=== PATIENT | female | born 1970 | race Caucasian/White ===

== ENCOUNTER 2016-11-16 08:50 | Emergency (ER) | payer OTHER ==
--- NOTE | ~2016-11-16 | CR72 ---
[facility] A Service of [facility] & [facility] RADIOLOGY TEXT RESULTS PATIENT: TANVIR BRIONES LOCATION: [facility] : 71 UNIT #: [id number] AGE: [address]: Michael Tapia MD SEX: F ORDER DR: [id number] [facility] [address] [place], [place] [address] [id number] E MR#: [id number] Acc #: [id number] NAME: TANVIR BRIONES. : 1970 SEX: F STUDY DATE/TIME: 11/16/2016 10:03 UNIT: [facility] ROOM: STUDY DESCRIPTION: CR Chest Single View Portable Attending Physician: Michael Tapia M.D. Ordering Physician: Michael Tapia M.D. Primary Care Physician: Alfredo Girard M.D. MEDICAL IMAGING REPORT This report is preliminary unless electronic signature is present EXAM Portable AP view of the chest COMPARISON October 20, 2014 INDICATION 46-year-old female with dyspnea and cough for 1 week. History of asthma. FINDINGS Hazy attenuation over the left lateral lung base is favored to be due to prominent breast shadow. No evidence of pneumothorax. Right lung is clear. Cardiomediastinal silhouette is normal. IMPRESSION Hazy attenuation over the left lower chest favored to represent prominent soft tissue shadow. Left basilar atelectasis, pneumonia and/or pleural effusion cannot entirely be excluded but are thought less likely. If clinically indicated, a lateral view could be performed to confirm. Otherwise normal chest. Dictated by... Laurent Patel M.D. THIS IS AN ELECTRONICALLY VERIFIED REPORT Laurent Patel M.D. at 11/23/2016 2:19 PM Seamus TD: 11/16/2016 12:59 JOB #: [id number] MEDICAL IMAGING REPORT Page 1 of 1 COPY
--- NOTE | ~2016-11-16 | EKG ---
PATIENT: TANVIR BRIONES UNIT #: [id number] Ventricular Rate: 106 BPM Atrial Rate: 106 BPM P-R Interval: 136 ms QRS Duration: 102 ms Q-T Interval: 376 ms QTC Calculation(Bezet): 499 ms Calculated R [place]: -15 degrees Calculated T [place]: 123 degrees Diagnosis Line: Sinus tachycardia Diagnosis Line: Nonspecific T wave abnormality Diagnosis Line: Abnormal ECG Diagnosis Line: When compared with ECG of 20-OCT-2014 22:14, Diagnosis Line: Nonspecific T wave abnormality now evident in Diagnosis Line: Inferior leads Diagnosis Line: Nonspecific T wave abnormality now evident in Diagnosis Line: Lateral leads Diagnosis Line: Confirmed by XIN RODARTE MD ([id number]) on Diagnosis Line: 11/18/2016 9:37:33 PM INTERPRETING MD: CAYDEN HUTSON
[2016-11-16 09:55] LABS: POC - CKMB 1.4 ng/mL (0.0-7.9); POC - TROPONIN <0.05 ng/mL (<=0.05)
[2016-11-16 10:09] LABS: BASOPHIL# 0.1 X10e3 (0-0.3); BASOPHIL% 1.2 % (0-2.5); DIFF IND NO; EOSINOPHIL# 0.1 X10e3 (0-0.7); EOSINOPHIL% 1.3 % (0.0-7.0); HEMOGLOBIN 16.2 gm/dL (12.0-16.0); LYMPHOCYTE# 1.1 X10e3 (1.0-3.5); MEAN CELL VOLUME 96.9 FL (83-96); MONOCYTE# 0.4 X10e3 (0-1.0); MONOCYTE% 7.1 % (3.0-12.0); NEUTROPHIL# 4.6 X10e3 (1.5-7.1); NEUTROPHIL% 72.4 % (40-75); PLATELET COUNT 151 X10e3 (140-420); RED BLOOD COUNT 5.06 X10e (3.90-5.30); RED CELL DISTRIBUTION WIDTH 14.2 % (11.0-15.5); WHITE BLOOD COUNT 6.3 X10e3 (4.0-10.5)
[2016-11-16 10:35] LABS: CALCIUM SERUM 8.9 mg/dL (8.4-10.2); CREATININE SERUM 0.7 mg/dL (0.6-1.4); GLOM FILT RATE Estimated 104.6 mL/min (>60)
[2016-11-16 10:37] LABS: POTASSIUM 2.9 mmol/L (3.5-5.1)
== END 2016-11-16 10:59 | disposition home or self-care (01) ==
LOC: CED 08:50
PROVIDERS: Emergency Medicine
DX: J45.901 Unspecified asthma with (acute) exacerbation (principal); E87.6 Hypokalemia; F17.200 Nicotine dependence, unspecified, uncomplicated; Z88.0 Allergy status to penicillin; Z88.2 Allergy status to sulfonamides; Z98.890 Other specified postprocedural states
CPT/HCPCS: 36415; 71010; 80048; 82553; 84484; 85025; 93005; 94640; 99284

== ENCOUNTER 2016-12-20 10:09 | Emergency (ER) | payer OTHER ==
--- NOTE | ~2016-12-20 | CT16 ---
[facility] A Service [facility] RADIOLOGY TEXT RESULTS PATIENT: TANVIR BRIONES LOCATION: [facility] : 71 UNIT #: [id number] AGE: [address]: Galilea Salgado MD SEX: F ORDER DR: [id number] [facility] [address] [place], [place] [address] [id number] E MR#: [id number] Acc #: [id number] NAME: TANVIR BRIONES. : 1970 SEX: F STUDY DATE/TIME: 12/20/2016 17:12 UNIT: [facility] ROOM: STUDY DESCRIPTION: CT Angio Chest for PE Attending Physician: Galilea Salgado M.D. Ordering Physician: Galilea Salgado M.D. Primary Care Physician: Luz Mcmahan A.P.R.N. MEDICAL IMAGING REPORT This report is preliminary unless electronic signature is present EXAM Chest CTA, 12/20. INDICATION Difficulty breathing with shortness of air and cough that started this morning. Vomiting. TECHNIQUE Axial images were obtained through the chest following IV contrast administration. 3-D reformats were obtained. This CT exam was performed with one or more of the following radiation dose reduction techniques: automatic exposure control, adjustment of mA and/or kV according to patient size, and iterative reconstruction. COMPARISON No comparison. FINDINGS No pleural or pericardial effusion. No pulmonary embolism or aortic dissection. No adenopathy. Breast implants are present. The right appears much smaller and is probably ruptured. The lungs are clear. Upper abdomen is unremarkable. There is degenerative disease in the thoracic spine. IMPRESSION 1. No pulmonary embolism or aortic dissection. 2. No active disease in the chest. 3. Probable ruptured right breast implant. Dictated by... [facility] A Service of [facility] RADIOLOGY TEXT RESULTS PATIENT: TANVIR BRIONES LOCATION: [facility] : 71 UNIT #: [id number] AGE: [address]: Galilea Salgado MD SEX: F ORDER DR: Don Keith Jr., M.D. THIS IS AN ELECTRONICALLY VERIFIED REPORT Don Keith Jr., M.D. at 12/23/2016 5:55 AM AVTAR/jason TD: 12/21/2016 02:33 JOB #: [id number] MEDICAL IMAGING REPORT Page 1 of 1 COPY
--- NOTE | ~2016-12-20 | EKG ---
PATIENT: TANVIR BRIONES UNIT #: [id number] Ventricular Rate: 103 BPM Atrial Rate: 103 BPM P-R Interval: 136 ms QRS Duration: 102 ms Q-T Interval: 402 ms QTC Calculation(Bezet): 526 ms P [place]: 28 degrees Calculated R [place]: 15 degrees Calculated T [place]: 26 degrees Diagnosis Line: Sinus tachycardia Diagnosis Line: Possible Left atrial enlargement Diagnosis Line: Prolonged QT Diagnosis Line: Abnormal ECG Diagnosis Line: When compared with ECG of 16-NOV-2016 10:05, Diagnosis Line: Nonspecific T wave abnormality, improved in Diagnosis Line: Inferior leads Diagnosis Line: Nonspecific T wave abnormality no longer evident Diagnosis Line: in Lateral leads Diagnosis Line: Confirmed by ADILIA JEFFERSON MD ([id number]) on 12/25/2016 Diagnosis Line: 2:39:32 PM INTERPRETING MD: LI HUTSON
--- NOTE | ~2016-12-20 | CR72 ---
[facility] A Service of [facility] & [facility] RADIOLOGY TEXT RESULTS PATIENT: TANVIR BRIONES LOCATION: [facility] : 71 UNIT #: [id number] AGE: [address]: Galilea Salgado MD SEX: F ORDER DR: [id number] [facility] [address] [place], [place] [address] [id number] E MR#: [id number] Acc #: [id number] NAME: TANVIR BRIONES. : 1970 SEX: F STUDY DATE/TIME: 12/20/2016 13:02 UNIT: [facility] ROOM: STUDY DESCRIPTION: CR Chest Single View Portable Attending Physician: Galilea Salgado M.D. Ordering Physician: Galilea Salgado M.D. Primary Care Physician: Luz Mcmahan MEDICAL IMAGING REPORT This report is preliminary unless electronic signature is present EXAM Portable chest, 12/20/2016. [facility] HISTORY 46-year-old woman, short of air, chest tightness, dizziness, nausea, vomiting. Symptoms since 9:00 a.m. 30-year smoking history. Comparison chest 11/16/2016. FINDINGS AP upright portable chest demonstrates normal heart size. Hilar structures and mediastinal contours are preserved. Bilateral lungs are expanded and clear. Costophrenic angles are clear. IMPRESSION Negative stable chest. Dictated by... Rich King M.D. THIS IS AN ELECTRONICALLY VERIFIED REPORT Rich King M.D. at 12/21/2016 3:01 PM FLORINDA/naomie TD: 12/20/2016 19:43 JOB #: [id number] MEDICAL IMAGING REPORT Page 1 of 1 COPY
[2016-12-20 13:03] LABS: BASOPHIL# 0.1 X10e3 (0-0.3); BASOPHIL% 1.3 % (0-2.5); EOSINOPHIL# 0.1 X10e3 (0-0.7); EOSINOPHIL% 1.8 % (0.0-7.0); HEMATOCRIT 53.1 % (35.0-45.0); HEMOGLOBIN 17.7 gm/dL (12.0-16.0); LYMPHOCYTE# 1.9 X10e3 (1.0-3.5); LYMPHOCYTE% 35.8 % (17.0-45.0); MEAN CELL VOLUME 95.4 FL (83-96); MEAN CORPUSCULAR HEMOGLOBIN 31.8 PG (28-34); MEAN CORPUSCULAR HGB CONC 33.3 g/dL (30-36); MEAN PLATELET VOLUME 8.5 FL (6.5-11.5); MONOCYTE# 0.4 X10e3 (0-1.0); MONOCYTE% 8.3 % (3.0-12.0); NEUTROPHIL# 2.8 X10e3 (1.5-7.1); NEUTROPHIL% 52.8 % (40-75); PLATELET COUNT 127 X10e3 (140-420); RED BLOOD COUNT 5.56 X10e (3.90-5.30); RED CELL DISTRIBUTION WIDTH 14.8 % (11.0-15.5); WHITE BLOOD COUNT 5.3 X10e3 (4.0-10.5)
[2016-12-20 13:11] LABS: DIFF IND NO
[2016-12-20 13:40] LABS: ALBUMIN SERUM 3.7 g/dL (3.5-5.0); BILIRUBIN, DIRECT 0.3 mg/dL (0.0-0.2); BILIRUBIN,INDIRECT 0.8 mg/dL (0.0-0.9); BILIRUBIN,TOTAL 1.1 mg/dL (0.2-2.0); CALCIUM SERUM 8.8 mg/dL (8.4-10.2); CREATININE SERUM 0.5 mg/dL (0.6-1.4); GLOM FILT RATE Estimated 116.9 mL/min (>60); POTASSIUM 3.1 mmol/L (3.5-5.1); PROTEIN TOTAL SERUM 6.8 g/dL (6.0-8.3)
[2016-12-20 18:34] LABS: POC - CKMB <1.0 ng/mL (0.0-7.9); POC - TROPONIN <0.05 ng/mL (<=0.05)
== END 2016-12-20 19:30 | disposition home or self-care (01) ==
LOC: CED 10:09
PROVIDERS: Emergency Medicine
DX: J45.901 Unspecified asthma with (acute) exacerbation (principal); F17.210 Nicotine dependence, cigarettes, uncomplicated; Z88.0 Allergy status to penicillin; Z88.2 Allergy status to sulfonamides
CPT/HCPCS: 36415; 71010; 71275; 80048; 80076; 82553; 83690; 84484; 85025; 93005; 94640; 96365; 96375; 99285; J2405; J2930; J3475; Q9967

== ENCOUNTER 2017-01-23 18:51 | Inpatient (IN) | payer OTHER ==
[~2017-01-23] VITALS: Ht 165.1 cm; Wt 109.8 kg
--- NOTE | ~2017-01-23 | CO ---
Unit #: [id number] #: [id number] Patient: TANVIR BRIONES [id number] [facility] [place], [place] [address] [id number] I MR#: [id number] NAME: TANVIR BRIONES. ROOM: 571 Age: 46 Sex: F Admission Date: 01/23/2017 : 1970 Attending Physician: Daphney Glass M.D. Primary Care Physician: Luz Mcmahan CONSULTATION REPORT REASON FOR CONSULTATION Possible sleep apnea HISTORY OF PRESENT ILLNESS Mstrf-rood-pjgw-old female who is a smoker, presents with apparent angioedema. She had been just started on lotrel not long ago. She was treated with steroids, H1, H2 antihistamines and is better. There was a question of obstructive sleep apnea and we were asked to evaluate the patient. She does have snoring, some daytime sleepiness, restless sleep and does state that occasionally she will have shortness of breath at night when she is asleep. PAST MEDICAL HISTORY Remarkable for asthma, history of hypertension. She denies heart disease, cancer, known history of emphysema or COPD, diabetes. MEDICATIONS AT HOME 1. Breo (she apparent ran out of Breo recently) She does state that it has helped. 2. Albuterol as needed. ALLERGIES Penicillin and sulfa. SOCIAL HISTORY She smokes a pack of cigarettes a day. She does drink alcohol. She used to be a heavy drinker. She said she stopped drinking, restarted. Now she drinks only intermittently. She denied daily drinking to my history. FAMILY HISTORY Hypertension. REVIEW OF SYSTEMS As above and she does have daily sputum production. No definite wheezing. No chest pain, palpitations, abdominal pain, melena, hematochezia, hematuria, dysuria, focal weakness, paresthesias, leg pain, swelling. Further review of systems negative or as above. PHYSICAL EXAMINATION GENERAL: Reveals a patient who is in no acute distress on room air with saturations at 97%. VITAL SIGNS: She is afebrile, pulse 114, respiratory rate 18, blood pressure 132/68. She is 5 feet 5 inches, 278 pounds. BMI is 46. HEENT: Pupils equal, round, reactive to light. Sclera anicteric. Unit #: [id number] #: [id number] Patient: TANVIR BRIONES Head: atraumatic. NECK: Supple. No supraclavicular or cervical adenopathy appreciated. Mucous membranes are moist. Malampati Class 4 oropharynx. CHEST: She does have expiratory wheeze, primarily posteriorly . scattered rhonchi. No consolidation. No stridor. CARDIAC EXAMINATION: Reveals a regular rate and rhythm. No murmur, rub, or gallop. ABDOMEN: Obese, soft, nontender, no hepatomegaly or rebound. EXTREMITIES: Reveal no clubbing, cyanosis, or edema. No calf tenderness. SKIN: Warm and dry without rash or diaphoresis. She does have some tattoos. NEUROLOGIC: Grossly intact. No focal muscle or sensory deficits. DIAGNOSTIC STUDIES LABORATORY: She has a BUN of 18, a creatinine of 0.6. Her sodium was very low at 116, now 121. TSH mildly low at 0.21. White blood cell count is 4, hemoglobin 18.1, hematocrit is 52, platelet count normal. IMAGING: No chest x-ray has been performed, but she recently had a chest x-ray which was unremarkable. CT scan in November 2016 was fairly unremarkable. I did see some evidence of emphysema. There was no PE. CARDIOLOGY: Rhythm strips are sinus. I do not see a formal EKG. IMPRESSION 1. Likely obstructive sleep apnea with sleepiness, snoring, obesity, etc. 2. Polycythemia with adequate daytime saturations. 3. Asthma/chronic obstructive pulmonary disease with some emphysema noted on CAT scan. 4. Tobacco use. 5. Hyponatremia, improving. 6. Angioedema, likely secondary to medications PLAN Outpatient nocturnal polysomnography. We have discussed the pathophysiology of sleep apnea including health risks, risks of motor vehicle accidents, diagnostic process and therapeutic options including CPAP. We discussed the beneficial effects of weight loss. She will ultimately need outpatient pulmonary function tests. Certainly no smoking is a great benefit and this has been discussed. I would suggest continuing her Breo and as needed Albuterol. I agree with IV steroids. I will add antibiotics for bronchitis as she does produce some sputum and has a somewhat rhonchorous cough. Agree with rechecking hemoglobin and hematocrit and she may need phlebotomy. Consider hematology consultation as an outpatient if polycythemia does not improve and/or no significant hypoxemia is found on her sleep study. Thank you very much for allowing me to participate in the care of Ms. Briones. Dictated by... Pedrito Camargo M.D. [facility]/to Unit #: [id number] #: [id number] Patient: TANVIR BRIONES TD: 01/25/2017 12:52 JOB #: [id number] CONSULTATION REPORT Page 1 of 1 X Pedrito Camargo MD X CONSULTATION REPORT
--- NOTE | ~2017-01-23 | DS ---
Unit #: [id number] #: [id number] Patient: TANVIR BRIONES [id number] [address] [place], [place] [address] [id number] I MR#: [id number] NAME: TANVIR BRIONES. ROOM: 571 Age: 46 Sex: F Admission Date: 01/23/2017 : 1970 Discharge Date: 01/25/2017 Attending Physician: Daphney Glass M.D. Primary Care Physician: Luz Mcmahan A.P.R.N. DISCHARGE SUMMARY REASON FOR ADMISSION Oropharyngeal angioedema/hyponatremia. HISTORY OF PRESENT ILLNESS/HOSPITAL COURSE The patient is a very pleasant 46-year-old female with a prior history of asthma and hypertension. She was admitted secondary to angioedema/hyponatremia. Please see history and physical for complete details. For the initial part of hospital stay her sodium initially was decreased down to 116 as well. In regard to her angioedema, she was placed on routine medications, including Benadryl as well as IV Solu-Medrol. This resolved appropriately. She was placed on telemetry floor. Her sodium was subsequently followed. She was placed on normal saline as well as fluid restriction. This morning her sodium currently stands at 128. It was noted on initial laboratory studies that her hemoglobin was 18.1, hematocrit 52.0 secondary to increased BMI. This prompted a consultation to pulmonary services for probably obstructive sleep apnea. Dr. Camargo and associates saw and evaluated the patient. It is recommended that at the time of discharge she should follow up as an outpatient for sleep apnea evaluation. This morning her hemoglobin currently stands at 17.0 with hematocrit of 39.5. I will have Dr. Deluca and associates see and evaluate the patient to establish a plan of care moving forward. At this point in time it does not appear that she requires urgent phlebectomy, but perhaps can be followed closely as an outpatient. Further phlebectomy and/or management as per the discretion of Dr. Deluca. The patient was strongly encouraged to quit tobacco as well as try to decrease her overall weight, as this may be compounding the problem for her secondary polycythemia. The patient did also undergo an ultrasound of her spleen on 01/24/2017, which did not show an acute process. It was normal. At this point in time the patient is stable for discharge. FINAL DISCHARGE DIAGNOSES 1. Oropharyngeal angioedema secondary to SAMEER inhibitor. 2. Hyponatremia on admission. Now improving. 3. Morbid obesity. Unit #: [id number] #: [id number] Patient: TANVIR BRIONES 4. Hypertension. 5. Asthma history. 6. Tobacco abuse. 7. Likely underlying chronic obstructive pulmonary disease. 8. Thought secondary polycythemia. 9. Decreased TSH at 0.21. However, free T4 normal. DISCHARGE MEDICATIONS 1. Albuterol/ProAir HFA 1-2 puffs q.6 h. p.r.n. 2. Medrol Dosepak as directed. 3. Hydralazine 25 mg p.o. b.i.d. 4. Zithromax Z-Jonas, take as directed. 5. Pepcid 20 mg p.o. b.i.d. 6. Symbicort 160/4.5 two puffs b.i.d. DISCHARGE CONDITION Stable. DISPOSITION Home. FOLLOWUP 1. Follow up with primary care physician in 7-10 days. 2. Follow up with Dr. Deluca as per hematology instructions. Dictated by... Gurvinder Lipscomb/diana TD: 01/27/2017 09:47 JOB #: [id number] DISCHARGE SUMMARY Page 1 of 1 X Lynn Marino MD X DISCHARGE SUMMARY
--- NOTE | ~2017-01-23 | HP ---
Unit #: [id number] #: [id number] Patient: TANVIR BRIONES [id number] [address] [place], [place] [address] [id number] I MR#: [id number] NAME: TANVIR BRIONES. ROOM: 27926 Age: 46 Sex: F Admission Date: 01/23/2017 : 1970 Attending Physician: Sara Ahn M.D. Primary Care Physician: Luz Mcmahan A.P.R.N. HISTORY AND PHYSICAL CHIEF COMPLAINT Oropharyngeal angioedema and hyponatremia. HISTORY This pleasant 46-year-old female with asthma, hypertension, is admitted for angioedema and hyponatremia. The patient states that she was started on her new blood pressure medicine about a month ago. Possibly this is Lotrel and hydrochlorothiazide. Today developed swelling of her lips and right side of the face but denies difficulty swallowing or breathing. She presented to this emergency department with obvious perioral angioedema, was treated with Solu-Medrol, Pepcid, Benadryl, with some improvement of symptoms. In review of her labs, her sodium is 116, down from a sodium of 135 one month ago. Patient states that she does drink about three beers on a daily basis. However, I suspect that she is on a combination of Lotrel and hydrochlorothiazide. Normal saline fluids were ordered in the ER. On examination she also has bronchospasm. PAST MEDICAL HISTORY 1. Essential hypertension. 2. Asthma. 3. Breast implants at age 17. ALLERGIES Sulfa. HOME MEDICATIONS ProAir, Breo Ellipta which the patient ran out of, and what sounds to be possibly Lotrel and hydrochlorothiazide. FAMILY HISTORY Hypertension. SOCIAL HISTORY The patient lives with her mother and uncle. She smokes one-half pack per day of tobacco, down from one pack per day, states that she drinks about three 12-ounce beers on a daily basis, denies any possibility of . REVIEW OF SYSTEMS Notable for hypertension, asthma, facial swelling, breast implants, tobacco use. All other systems were reviewed and are otherwise negative. Unit #: [id number] #: [id number] Patient: TANVIR BRIONES PHYSICAL EXAMINATION GENERAL: Pleasant, obese, 46-year-old female currently in no acute distress. VITAL SIGNS: Temperature 98.4. Pulse 103. Respirations 17. Blood pressure 124/72. O2 saturation is 98% on room air. HEENT: Eyes PERRLAA, extraocular muscles are intact. Pharynx reveals some swelling of the lips but mainly on the right side with swelling of her right cheek. She has no swelling of the soft palate. NECK: Supple, without adenopathy or thyromegaly. CHEST: Reveals expiratory wheezes. CARDIAC: Normal S1 and S2, without murmur. ABDOMEN: Bowel sounds are present. No hepatosplenomegaly, tenderness or masses. EXTREMITIES: Without cyanosis, clubbing or edema. Pedal pulses are present. NEUROLOGIC EXAM: Patient is awake, alert, oriented. Cranial nerves are intact. Equal strength throughout. DIAGNOSTIC STUDIES LABORATORY: On admission labs hematocrit is 53, normal white count and platelets; SMA-7 sodium 116 down from 135 a month ago, chloride is 82, calcium is 9.2. IMAGING: Of note a CTA was performed of the chest 12/20/2016 revealing a possible ruptured right breast implant, otherwise normal. ASSESSMENT 1. Oropharyngeal angioedema after starting an SAMEER inhibitor a month ago. 2. New hyponatremia since 12/20/2016. I suspect patient is on a combination SAMEER inhibitor with hydrochlorothiazide, possibly a Lotrel and hydrochlorothiazide. 3. Chronic obstructive pulmonary disease with mild exacerbation. 4. Essential hypertension. 5. Moderate (at least) beer consumption. PLANS 1. Discontinue blood pressure medicines and will start hydralazine in the morning. 2. Gentle normal saline, check TSH, and monitor chemistries carefully. 3. Steroids, H1 and H2 blockers. 4. Albuterol mini-nebs. Dictated by Sara Ahn M.D. AML/cf TD: 01/23/2017 22:54 JOB #: [id number] Unit #: [id number] #: [id number] Patient: TANVIR BRIONES HISTORY AND PHYSICAL Page 1 of 1 X Sara Ahn MD HISTORY AND PHYSICAL
--- NOTE | ~2017-01-23 | BMI ---
[facility] Nutrition Therapy DATE: 01/24/17 Patient: TANVIR Young BRIONES Physician: MONTY Address: [address] [place] [address] Room/Bed: [address] [place] [address], Zip: [place] [address] Admit Date: 01/23/17 Date of : [birth year] Height: 5 5 Weight: 278 126.4 HIGH BMI NOTE: DX: 46 y/o female admitted with angioedema and hyponaremia ANTHROPOMETRICS: Ht: 65", Wt: 126.4 kg, BMI: 46 (stage III obese) DIET: Healthy heart INTERVENTION: Restricted diet, meds/fluids per MD RECOMMENDATIONS: Continue current diet to promote a gradual weight loss towards a healthy BMI range. Respectfully, Iwona Perdue RD, LD Food and Nutritional [facility] cc: client file
--- NOTE | ~2017-01-23 | US118 ---
[facility] A Service of [facility] & [facility] / [facility] RADIOLOGY TEXT RESULTS PATIENT: TANVIR BRIONES LOCATION: [facility] 571-01 : [birth year] UNIT #: [id number] AGE: [address]: Daphney Glass MD SEX: F ORDER DR: [id number] [facility] [address] [place], [place] [address] [id number] I MR#: [id number] Acc #: [id number] NAME: TANVIR BRIONES : 1970 SEX: F STUDY DATE/TIME: 01/24/2017 11:41 UNIT: [facility] ROOM: [facility] STUDY DESCRIPTION: US Spleen Attending Physician: Daphney Glass M.D. Ordering Physician: Daphney Glass M.D. Primary Care Physician: Luz Mcmahan A.P.R.N. MEDICAL IMAGING REPORT This report is preliminary unless electronic signature is present EXAM Ultrasound of the spleen, 01/24/2017 HISTORY Abnormally elevated liver enzymes, elevated lipase, daily alcohol consumption, tobacco use, hypertension and asthma, evaluate spleen size. FINDINGS Ultrasound of the spleen was performed. The spleen measures 7.8 cm x 4 cm x 8 cm. The spleen is homogeneous in echotexture. No cystic or solid mass lesions are seen within the spleen. The left kidney was not visualized. IMPRESSION Normal spleen. Dictated by... Yoel Kendrick M.D. THIS IS AN ELECTRONICALLY VERIFIED REPORT Yoel Kendrick M.D. at 01/27/2017 6:07 AM ZOHAIB/mariano TD: 01/24/2017 20:08 JOB #: [id number] MEDICAL IMAGING REPORT Page 1 of 1 COPY
[2017-01-23 20:13] LABS: BASOPHIL% 0.6 % (0-2.5); EOSINOPHIL# 0.1 X10e3 (0-0.7); EOSINOPHIL% 1.9 % (0.0-7.0); HEMOGLOBIN 18.2 gm/dL (12.0-16.0); LYMPHOCYTE% 14.7 % (17.0-45.0); MEAN CELL VOLUME 93.3 FL (83-96); MEAN CORPUSCULAR HEMOGLOBIN 32.1 PG (28-34); MEAN CORPUSCULAR HGB CONC 34.4 g/dL (30-36); MEAN PLATELET VOLUME 8.3 FL (6.5-11.5); MONOCYTE# 0.6 X10e3 (0-1.0); MONOCYTE% 9.8 % (3.0-12.0); NEUTROPHIL# 4.8 X10e3 (1.5-7.1); PLATELET COUNT 203 X10e3 (140-420); RED BLOOD COUNT 5.68 X10e (3.90-5.30); RED CELL DISTRIBUTION WIDTH 14.6 % (11.0-15.5); WHITE BLOOD COUNT 6.5 X10e3 (4.0-10.5)
[2017-01-23 20:14] LABS: DIFF IND NO
[2017-01-23 20:47] LABS: BUN/CREATININE RATIO 21.11; CALCIUM SERUM 9.2 mg/dL (8.4-10.2); CREATININE SERUM 0.9 mg/dL (0.6-1.4); GLOM FILT RATE Estimated 77.3 mL/min (>60); POTASSIUM 4.6 mmol/L (3.5-5.1)
[2017-01-23] MEDS ORDERED: PROAIR HFA8.5 GM INH (23:43)
[2017-01-24 02:18] LABS: POTASSIUM 4.3 mmol/L (3.5-5.1)
[2017-01-24 08:45] LABS: HEMOGLOBIN 18.1 gm/dL (12.0-16.0); MEAN CELL VOLUME 93.5 FL (83-96); MEAN CORPUSCULAR HEMOGLOBIN 32.6 PG (28-34); MEAN CORPUSCULAR HGB CONC 34.8 g/dL (30-36); MEAN PLATELET VOLUME 8.2 FL (6.5-11.5); RED BLOOD COUNT 5.56 X10e (3.90-5.30); RED CELL DISTRIBUTION WIDTH 14.3 % (11.0-15.5)
[2017-01-24 09:05] LABS: ALBUMIN SERUM 4.3 g/dL (3.5-5.0); BILIRUBIN,TOTAL 0.7 mg/dL (0.2-2.0); CALCIUM SERUM 9.4 mg/dL (8.4-10.2); CREATININE SERUM 0.6 mg/dL (0.6-1.4); GLOM FILT RATE Estimated 110.1 mL/min (>60); PROTEIN TOTAL SERUM 7.5 g/dL (6.0-8.3)
[2017-01-24 12:19] LABS: FREE T3 2.6 pg/mL (2.5-3.9)
[2017-01-24 12:20] LABS: FREE THYROXIN (T4) 0.82 ng/dL (0.58-1.64)
[2017-01-24 14:06] LABS: BUN/CREATININE RATIO 22.5; CALCIUM SERUM 9.5 mg/dL (8.4-10.2); CREATININE SERUM 0.8 mg/dL (0.6-1.4); GLOM FILT RATE Estimated 89.1 mL/min (>60); POTASSIUM 4.6 mmol/L (3.5-5.1)
[2017-01-24 19:47] LABS: CALCIUM SERUM 9.4 mg/dL (8.4-10.2); CREATININE SERUM 0.8 mg/dL (0.6-1.4); GLOM FILT RATE Estimated 89.1 mL/min (>60); POTASSIUM 4.6 mmol/L (3.5-5.1)
[2017-01-25 01:55] LABS: BUN/CREATININE RATIO 18.57; CREATININE SERUM 0.7 mg/dL (0.6-1.4); GLOM FILT RATE Estimated 104.6 mL/min (>60); POTASSIUM 4.1 mmol/L (3.5-5.1)
[2017-01-25 06:35] LABS: HEMATOCRIT 49.5 % (35.0-45.0); MEAN CELL VOLUME 95.1 FL (83-96); MEAN CORPUSCULAR HEMOGLOBIN 32.7 PG (28-34); MEAN CORPUSCULAR HGB CONC 34.4 g/dL (30-36); MEAN PLATELET VOLUME 8.1 FL (6.5-11.5); RED BLOOD COUNT 5.21 X10e (3.90-5.30); RED CELL DISTRIBUTION WIDTH 14.9 % (11.0-15.5)
[2017-01-25 06:41] LABS: WHITE BLOOD COUNT 12.2 X10e3 (4.0-10.5)
[2017-01-25 07:00] LABS: BUN/CREATININE RATIO 14.28; CALCIUM SERUM 9.6 mg/dL (8.4-10.2); CREATININE SERUM 0.7 mg/dL (0.6-1.4); GLOM FILT RATE Estimated 104.6 mL/min (>60); POTASSIUM 4.2 mmol/L (3.5-5.1)
[2017-01-25] MEDS ORDERED: MEDROL DOSEPAK4 MG DOB (11:46)
[2017-01-25] MEDS ORDERED: SYMBICORT INH (11:47)
[2017-01-25] MEDS ORDERED: HYDRALAZINE HCL25 MG PO (11:48)
[2017-01-25] MEDS ORDERED: PEPCID PO (11:48)
[2017-01-25] MEDS ORDERED: ZITHROMAX (11:51)
== END 2017-01-25 13:39 | disposition home or self-care (01) | DRG 916 ==
LOC: CED 18:51 → CEDOF 21:50 → CED 22:26 → CEDOF 22:26 → C5C 01-24 00:16 → CEDOF 01-24 00:16 → C5C 01-24 00:16
PROVIDERS: Emergency Medicine; Internal Medicine
DX: T78.3XXA Angioneurotic edema, initial encounter (principal); E87.2 Acidosis; E87.1 Hypo-osmolality and hyponatremia; D75.1 Secondary polycythemia; J44.1 Chronic obstructive pulmonary disease with (acute) exacerbation; Z68.42 Body mass index [BMI] 45.0-49.9, adult; E66.01 Morbid (severe) obesity due to excess calories; I10 Essential (primary) hypertension; T50.2X5A Adverse effect of carbonic-anhydrase inhibitors, benzothiadiazides and other diuretics, initial encounter; T46.4X5A Adverse effect of angiotensin-converting-enzyme inhibitors, initial encounter; Y92.9 Unspecified place or not applicable; G47.33 Obstructive sleep apnea (adult) (pediatric); F17.200 Nicotine dependence, unspecified, uncomplicated; Z71.6 Tobacco abuse counseling; Z88.2 Allergy status to sulfonamides; Z82.49 Family history of ischemic heart disease and other diseases of the circulatory system
CPT/HCPCS: 36415; 76705; 80048; 80053; 83935; 84439; 84443; 84481; 85025; 85027; 94640; 94760; 96374; 96375; 99285; J1200; J2920; J2930